=== PATIENT | female | born 1995 | race Caucasian/White ===

== ENCOUNTER → 2021-02-06 11:26 | Outpatient (BNVA) | payer SELFPAY | DX: Z76.89 Persons encountering health services in other specified circumstances (principal) ==

== ENCOUNTER → 2022-01-22 10:54 | Outpatient (BNVA) | payer SELFPAY | DX: Z02.83 Encounter for blood-alcohol and blood-drug test (principal) ==

== ENCOUNTER → 2022-02-12 11:23 | Outpatient (BNVA) | payer SELFPAY | DX: Z02.83 Encounter for blood-alcohol and blood-drug test (principal) ==